=== PATIENT | male | born 1995 | race Caucasian/White ===

== ENCOUNTER 2021-05-01 17:34 | Emergency (ER) | payer OTHER, SELFPAY ==
--- NOTE | ~2021-05-01 | XR_ITS ---
EXAMINATION: XR WRIST, RIGHT CLINICAL INFORMATION: Injury. Deformity. COMPARISON: None TECHNIQUE: 4 views of the right wrist. FINDINGS: Abnormal study showing evidence of comminuted distal right radial fracture with foreshortening of the radius and dorsal angulation of the distal fracture fragments. The fracture line appears to be extending to the articular surface. The distal radioulnar joint appears to be intact. The carpal bones appear intact however, incidental note is made of sub-5 mm radiolucency within the scaphoid, likely represent degenerative cyst, base seen on the lateral projection. The ulnar styloid process appears to be fractured as well. XR/XR wrist RT min 3V IMPRESSION: Abnormal radiographs of the right wrist showing evidence of distal comminuted right radial metaphyseal fracture with dorsal angulation of the distal fracture fragments. In specific note is made of fracture line extension to the articular surface and nonspecific sub-5 mm cyst involving the distal part of the scaphoid, and presence of ulnar styloid process fracture.
--- NOTE | ~2021-05-01 | XR_ITS ---
EXAMINATION: XR WRIST, RIGHT CLINICAL INFORMATION: Status post closed reduction and casting COMPARISON: Wrist radiographs earlier today at 6:03 PM TECHNIQUE: PA and lateral views of the right wrist. FINDINGS: Again seen is the distal radial metaphyseal fracture with associated ulnar styloid fracture. Still is some minimal impaction of the radial fracture but no significant angulation is present in appearances are significantly improved. Scaphoid cyst is again seen. XR/XR wrist RT min 3V IMPRESSION: Good appearance is status post reduction distal radial and ulnar fractures.
[2021-05-01 18:07] VITALS: BP 136/87; PULSE 74; RESP 16; TEMP 36.6; O2SAT 100; BMI 17.2
--- NOTE | 2021-05-01 18:36 | ED.EXTPRO ---
HPI - Extremity Problem General Chief complaint: Extremity Injury, Upper Stated complaint: wrist inj (work rel) Time Seen by Provider: 05/01/21 18:08 Source: patient Mode of arrival: ambulatory Limitations: no limitations History of Present Illness HPI Narrative: 25-year-old male previously healthy here with complaint of right wrist pain and deformity after a fall on outstretched hand which occurred today at work just prior to arrival. Denies paresthesias. No other complaints. No head injury or loss of consciousness. Related Data Previous Rx's Medication Instructions Recorded ibuprofen 600 mg tablet 600 mg PO TID PRN #20 tab 05/01/21 oxycodone 5 mg tablet 5 mg PO Q6H PRN #8 tab 05/01/21 Allergies Allergy/AdvReac Type Severity Reaction Status Date / Time No Known Allergies Allergy Verified 05/01/21 18:11 Review of Systems Review of Systems: Yes all other systems are reviewed and are negative Constitutional: Constitutional: Reports no additional constitutional complaints, Denies body ache(s), Denies chills, Denies fever(s), Denies headache(s) and Denies weakness Eyes: Eyes: Reports no additional eye complaints and Denies change in vision ENT: Reports system reviewed and no additional complaints, except as documented, Denies dizziness, Denies headache(s), Denies nasal congestion, Denies nasal discharge and Denies neck pain Cardiovascular: Cardiovascular: Reports no additional cardiovascular complaints, Denies chest pain, Denies leg edema and Denies dyspnea Respiratory: Respiratory: Reports no additional respiratory complaints, Denies cough and Denies dyspnea Gastrointestinal: Gastrointestinal: Reports no additional gastrointestinal complaints, Denies abdominal pain, Denies diarrhea, Denies nausea and Denies vomiting Genitourinary: Genitourinary: Denies urinary incontinence Musculoskeletal: Musculoskeletal: Reports no additional musculoskeletal complaints, Denies back pain, Reports arthralgias, Reports joint swelling, Reports limited range of motion, Denies neck pain, Denies numbness and Denies tingling Integumentary/Breasts: Skin/Breast: Reports system reviewed and no additional complaints, except as docu and Denies rash Neurologic: Reports system reviewed and no additional complaints, except as documented, Denies Abnormal speech present, Denies dizziness, Denies headache(s), Denies numbness, Denies tingling and Denies weakness [facility] Past Medical History Attestation statement: The following information was validated with the patient. Source: old records reviewed and nursing notes reviewed Social History Social History Advance Directives: No Advance Directives Information Provided: Yes Physical Exam Vital Signs: Vital Signs: Last Vital Signs Temp 97.9 F 05/01/21 18:07 Pulse 74 05/01/21 18:07 Resp 16 05/01/21 18:07 BP 136/87 05/01/21 18:07 Pulse Ox 100 05/01/21 18:07 Body Mass Index 17.2 Const: General: cooperative, healthy appearing, comfortable and no acute distress Orientation/consciousness: patient oriented x3 Limitations: no limitations HENMT: Head: Yes normal to inspection Ears: hearing grossly normal bilaterally General nose exam: Normal external nose present Face and sinus: Yes normal facial exam Mouth: Normal oral and palatal mucosa present Throat: Yes posterior oropharynx normal Eyes: General: appearance normal, both eyes and all related structures Pupils: Equal, round and reactive pupils present Neck: Neck: Yes normal visual inspection Chest: Chest palpation & inspection: normal inspection of the chest Resp: Effort & Inspection: normal respiratory effort Auscultation: clear to auscultation bilaterally Cardio: Rate: regular rate Rhythm: regular rhythm Peripheral pulses: Peripheral pulses 2+ throughout GI: Inspection: Yes normal to inspection Palpation (GI): Soft to palpation and nontender Auscultation: normal bowel sounds Back/Spine/Pelvis: Thoracic/Lumbar Spine: thoracic and lumbar spine normal to inspection Skin: General skin exam: no rashes or lesions noted Neuro: General: patient oriented x3, no focal motor deficits and normal sensation to monofilament Cranial nerves: Yes Equal, round and reactive pupils present Cognition (Neuro): normal cognition Speech: No Abnormal speech present Gait exam (Neuro): Normal gait present Motor exam (neuro): 5/5 motor strength present throughout Extrem: Other: Obvious deformity to the right wrist. Patient is able to move the hand. No paresthesias. Sensation is intact. Normal cap refill. Palpable radial and ulna pulses General: Yes normal to inspection Course Course Course Narrative: 25-year-old male left-hand dominant here with complaints of right wrist pain and deformity after a injury at work. Reviewed x-rays. XR/XR wrist RT min 3V IMPRESSION: Abnormal radiographs of the right wrist showing evidence of distal comminuted right radial metaphyseal fracture with dorsal angulation of the distal fracture fragments. In specific note is made of fracture line extension to the articular surface and nonspecific sub-5 mm cyst involving the distal part of the scaphoid, and presence of ulnar styloid process fracture. -discussed with orthopedics. Recommend reduction with splint placement and follow-up in the office on Monday. Discussed with attending Dr Maynard. Hematoma block done at the bedside. Patient placed in traction for 15 minutes. 2000-reduction done at the bedside. Patient placed in a splint. Postreduction films show proper alignment.. Spoke with Orthopedics and they will follow-up with the patient on Monday. Reviewed worrisome signs and symptoms when to return to the emergency department. Comfortable discharge home. MDM - Extremity (Nontraumatic) Medical Records Attestation: I reviewed the patient's medical records. Lab Data Attestation: I reviewed the patient's lab results. Imaging Data hand xray right: Attestation: I personally reviewed and interpreted this imaging study as follows: Radiologist's impression: [address] [address] XRay Report Signed Patient: Ildefonso Samuel MR#: [id number] : 1995 Acct:[id number] Age/Sex: 25 / M ADM Date: 05/01/21 Loc: .ED Attending Dr: Ordering Physician: Victor Manuel Maynard MD Date of Service: 05/01/21 Procedure(s): XR wrist RT min 3V Accession Number(s): [id number] cc: Victor Manuel Maynard MD~ EXAMINATION: XR WRIST, RIGHT CLINICAL INFORMATION: Injury. Deformity.? COMPARISON: None? TECHNIQUE: 4 views of the right wrist. FINDINGS: Abnormal study showing evidence of comminuted distal right radial fracture with foreshortening of the radius and dorsal angulation of the distal fracture fragments. The fracture line appears to be extending to the articular surface. The distal radioulnar joint appears to be intact. The carpal bones appear intact however, incidental note is made of sub-5 mm radiolucency within the scaphoid, likely represent degenerative cyst, base seen on the lateral projection. The ulnar styloid process appears to be fractured as well.? XR/XR wrist RT min 3V IMPRESSION: Abnormal radiographs of the right wrist showing evidence of distal comminuted right radial metaphyseal fracture with dorsal angulation of the distal fracture fragments. In specific note is made of fracture line extension to the articular surface and nonspecific sub-5 mm cyst involving the distal part of the scaphoid, and presence of ulnar styloid process fracture. Procedures Orthopedic Fracture Reduction Fracture #1: Time Out Performed: No Side: right Fracture Reduction Location: radius Analgesia: hematoma block Technique: direct manipulation, traction/counter-traction, traction splint and finger traps Post Reduction X-rays Demonstrate: anatomical reduction Post-reduction neuro exam: intact Post-reduction vascular exam: intact Splint Applied: Yes Patient Tolerated Procedure: well Orthopedic Splinting/Casting Injury #1: Side: right Upper Extremity Injury Location: forearm Upper Extremity Immobilizer: sugar tong splint Critical Care Time Critical Care Time Critical Care Time: Yes Total Critical Care Time: 60 Attestation: Hematoma block Placed in traction Reduction of the bedside Discussion with Orthopedic Post reduction films with re-evaluations for CMS Splinting Discharge Plan Discharge Clinical Impression: Distal radial fracture, Fracture of right ulnar styloid Patient Disposition: Home, Self-Care Instructions: Wrist Fracture in Adults (ED), Closed Reduction (ED) Additional Instructions: The splint was stay on all times Do not get it wet Orthopedics will call you Monday for an appointment Sling for comfort Ice 20 minutes on 20 minutes off Elevation Work connection-call Monday [phone] for occupational follow-up Prescriptions: New ibuprofen 600 mg tablet 600 mg PO TID PRN (Reason: pain) Qty: 20 RF: 0 oxycodone 5 mg tablet 5 mg PO Q6H PRN (Reason: pain) Qty: 8 RF: 0 Referrals: Hayder Castillo MD [Physician] - 2 days Stand Alone Forms: Work/School Release Interventions: ED Discharge Assessment Last Done: 05/01/21 20:16 Discharge Date/Time: 05/01/21 20:21
--- NOTE | 2021-05-01 19:26 | PC.NURSE ---
PT RIGHT WRIST NUMBED BY CHICO BUTLER AND PT PLACED IN FINGER TRACTION FOR 15 MINS. AFTER [address] BALDWIN AND JUAN TONG PLACED +CMS TO FINGER IMMOBILIZER GIVEN.
[2021-05-01] MEDS: Lidocaine HCl 1 % MPF 5 ML VIAL 10 ML SUBCUT (19:30)
[2021-05-01] MEDS: Ibuprofen 800 MG TABLET PO (20:10)
[2021-05-01] MEDS: oxyCODONE HCl Immed Release 5 MG TABLET PO (20:10)
== END 2021-05-01 20:21 | disposition home or self-care (01) ==
PROVIDERS: Emergency Provider Emergency Medicine Emergency Medical Services
DX: S52.351A Displaced comminuted fracture of shaft of radius, right arm, initial encounter for closed fracture (principal); S52.611A Displaced fracture of right ulna styloid process, initial encounter for closed fracture; W01.0XXA Fall on same level from slipping, tripping and stumbling without subsequent striking against object, initial encounter; Y93.89 Activity, other specified; Y92.512 Supermarket, store or market as the place of occurrence of the external cause; Y99.0 Civilian activity done for income or pay
CPT/HCPCS: 25675; 73110; 99284; 99291

== ENCOUNTER → 2021-05-03 14:26 | Outpatient (BNVA) | payer OTHER, SELFPAY | PROVIDERS: Visit Provider Physician Assistant | DX: S52.501A Unspecified fracture of the lower end of right radius, initial encounter for closed fracture (principal); S52.611A Displaced fracture of right ulna styloid process, initial encounter for closed fracture; W01.0XXA Fall on same level from slipping, tripping and stumbling without subsequent striking against object, initial encounter; Y93.01 Activity, walking, marching and hiking; Y92.9 Unspecified place or not applicable; Y99.8 Other external cause status | CPT/HCPCS: 99202 ==

== ENCOUNTER 2021-05-06 05:52 | Day surgery (SDC) | payer OTHER, SELFPAY ==
--- NOTE | 2021-05-05 10:25 | HO.ANESPROP2 ---
Documented by User: Anna Whitaker NP 05/05/21 10:26 HPI - Anesthesia Eval Consult details Narrative: 25yo M for Right Radius Distal Fracture ORIF [facility] Active Problems Active Problems: All Active Problems (Updated 05/03/21 @ 21:16 by Bret Arauz PA-C) Fracture of ulnar styloid (Acute) Distal radius fracture, right (Acute) Past Medical History Medical History No significant past medical history Social History Social History Patient Tobacco Use Status: Current everyday Tobacco user Tobacco use type: Cigarette Cigarettes Per Day: 10 Use of substances other than those prescribed or required for medical reasons: Yes Substance Use Frequency: Daily Are you DNR?: No Advance Directives: No Advance Directives Information Provided: Yes Current occupational status: employed Current occupation: [employer] Meds Allergies Allergy/AdvReac Type Severity Reaction Status Date / Time No Known Allergies Allergy Verified 05/01/21 18:11 Exam Exam Date and Time: May 05, 2021 1025 Assessment and Plan Assessment Anesthesia Assessment: Chart Reviewed Documented by User: Lisseth Zelaya MD 05/06/21 07:26 [facility] Past Medical History Medical History No significant past medical history Family History Family history of problems with anesthesia: No Surgical History History of Problems with Anesthesia: No Social History Social History Patient Tobacco Use Status: Current everyday Tobacco user Tobacco use type: Cigarette Cigarettes Per Day: 10 Use of substances other than those prescribed or required for medical reasons: Yes Substance Use Frequency: Daily Are you DNR?: No Advance Directives: No Advance Directives Information Provided: Yes Current occupational status: employed 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 Meds Allergies Allergy/AdvReac Type Severity Reaction Status Date / Time No Known Allergies Allergy Verified 05/01/21 18:11 Exam Airway Mallampati Class: I TM Dist: >3cm Neck ROM: Full Assessment and Plan Assessment Anesthesia Assessment: Anesthesia Plan Discussed Final Anesthetic Review Family History of Problems with Anesthesia: No History of Problems with Anesthesia: No NPO: Yes ASA Class: I Final Preanesthetic Review: No Changes in Pt Med Stat, Meds/Allgs Chart Reviewed, Consent Obtained/Reviewed and Anes Risks/Benef Reviewed Patient Risk: Low Procedure Risk: Low Assessment/Block/Sedation in SS: Assess/Block/Sedation-SS Anesthetic Plan Anesthetic Plan: GA and Regional Block
--- NOTE | ~2021-05-06 | FL_ITS ---
EXAMINATION: XR FLUOROSCOPY WITH IMAGES CLINICAL INFORMATION: ORIF right distal radius COMPARISON: Right wrist 05/01/2021 TECHNIQUE: Fluoroscopy performed by Dr. Cody. Fluoroscopy time: 73.2 seconds DAP: 295.69 mGycm2 Images: 5 FINDINGS: Several images of right distal radius were obtained and reveals status post ORIF with satisfactory alignment of distal radial fracture with dorsal plate and screws. FL/FL guidance in OR IMPRESSION: Status post ORIF with dorsal plate and screws. The distal radial fracture is stabilized in alignment.
[2021-05-06 06:32] VITALS: BP 136/67; PULSE 61; RESP 16; TEMP 36.6; O2SAT 100; BMI 16.5
[2021-05-06] MEDS: Lactated Ringers 1,000 ML 100 ML IVCONT (07:15)
--- NOTE | 2021-05-06 07:58 | P.OP_ITS ---
Operative Note Operative Note Date of Service: 05/06/21 Narrative: Operative Note Narrative: Preop diagnosis: 1. Right Distal radius fracture Postop diagnosis: Same Procedure: 1. Right Distal radius fracture open reduction internal fixation, extra-articular Surgeon: Marcia Cody MD Anesthesia: General plus a regional block Findings: Distal radius fracture Implants: A 3 hole Accu Med volar locking plate, with 5 times 2.3 mm locking pegs/screws, and 3 3.5 mm cortical screws Tourniquet time: 64 minutes EBL: 5.0 ml Specimen: None Drains: None Complications: None Disposition: Brought to the recovery room in stable condition Plan: Follow-up in 10-14 days for wound check, suture removal and postop radiographs The patient will be placed in either a short-arm cast or a volar wrist splint. Encouraged no lifting of anything heavier than a cell phone. Please encourage active and passive range of motion of the digits. Follow-up at 4-5 weeks postop for repeat radiographs. Indications: The patient is a 25 year old man with a right distal radius f racture . The risks and benefits of operative treatment, including but not limited to risk of damage to blood vessels, nerves, tendons, infection, recurrence, persistent pain or numbness, incomplete resolution of preoperative symptoms, or need for further surgery were discussed with the patient and they wished to proceed with surgery. Procedure: Once consent was obtained patient was brought back to the operating suite and placed in the operating table in a supine position. A regional block was performed by the anesthesia team. Perioperative antibiotics and anesthesia was administered by the anesthesia team. A tourniquet was applied to the proximal aspect of the right upper extremity and the limb was prepped and draped in a standard surgical fashion. The limb was elevated exsanguinated with Esmarch bandage and the tourniquet inflated to 250 mm of mercury for a total tourniquet time of 64 minutes. The FluoroScan was used throughout the case to assess our reduction, and facili graves implant placement. A gentle closed reduction was 1st performed on the patient's right distal radius fracture. Was assessed radiographically before proceeding with the reduction internal fixation. I then made an 8 cm longitudinal incision over the distal aspect of the flexor carpi radialis tendon. The incision was made through the skin to the subcutaneous tissue using a 15. Blade. Then carefully dissected down to flexor carpi radialis tendon she tenotomy scissors. The FCR tendon sheath was then incised longitudinally using tenotomy scissors under direct visualization. The FCR tendon was then retracted ulnarly. I then made a longitudinal incision in the volar forearm fascia through the floor of FCR tendon sheath using tenotomy scissors under direct visualization. I identified the interval between the radial artery and the flexor tendons. This interval was developed further with my index finger, releasing some of the muscular fibers of the flexor pollicis longus. A dull we cyander retractor was then placed. I then created an ulnarly based flap of the pronator quadratus by releasing the radial and distal edges using a 15. Blade. A Nina elevator was used to elevate the pronator quadratus from the volar surface of the distal radius. This then revealed to us our distal radius fracture. An open reduction was then performed on our distal radius fracture. I then placed a short narrow 3 hole Accu Med volar locking plate on the volar surface of the distal radius. I placed a single K-wire through the distal aspect of the plate and into the distal radius. This was assessed using fluoroscopic images. I was satisfied with the placement of our plate. I then placed 5 X 2.3 mm locking screws/pegs in the distal aspect of the plate and distal radius by 1st drilling bicortically with a 1.8 mm drill bit, measuring with a depth gauge, and placing the appropriate length locking screws/pegs. The placement of our plate and screws was then assessed again using fluoroscopic images. The once satisfied with the placement of the volar locking plate and screws on the distal aspect of the distal radius, the plate was then reduced to the shaft of the radius. I then placed 3 x 3.5 mm cortical screws to the proximal aspect of the plate and into the shaft of the radius. This was done by 1st drilling bicortically with a 2.8 mm drill bit, measuring with a depth gauge, and placing the appropriate length screw. Final radiographs were then obtained. The DRUJ was assessed and found to be stable on exam. I was satisfied with our reduction and placement of all implants. At this point the wound was irrigated with normal saline. The pronator quadratus was reduced back over the volar locking plate using some 3-0 Vicryl suture material. The tourniquet was then deflated and hemostasis was obtained with a brief period of local pressure and bipolar monopolar electrocautery. The subcutaneous layer was then reapproximated using some 4-0 Vicryl suture, and the skin edges were reapproximated using some 5 0 Prolene suture. The wound was then infiltrated with some 1% lidocaine with epinephrine postop pain control. A sterile dressing and a short dorsal splint allowing for active flexion and extension of the digits was applied. The patient appears to have tolerated the procedure well and with no complications. All digits were well vascularized conclusion of the case.
--- NOTE | 2021-05-06 07:58 | MHC.SHP ---
Pre-Procedural Eval Section A Date of Service: 05/06/21 The patient is an INPATIENT: No Changes since office visit: No Cold of Flu in the past 2 weeks, No New Medical Problems, No Changes in Medication and No Patient answered all questions The History & Physical has been completed within 30 days and I have reviewed it.: Yes Section B Chief Complaint: fx lower end right radius Allergies: Allergies Allergy/AdvReac Type Severity Reaction Status Date / Time No Known Allergies Allergy Verified 05/01/21 18:11 Plan I have reviewed the history and physical and performed a pertinent physical examination on my patient. No changes have occurred unless specified.
[2021-05-06 09:58] VITALS: BP 124/81; PULSE 85; RESP 16; TEMP 36.2; O2SAT 96
[2021-05-06 10:03] VITALS: BP 118/76; PULSE 79; RESP 18; O2SAT 100
[2021-05-06 10:08] VITALS: BP 114/72; PULSE 68; RESP 16; O2SAT 100
[2021-05-06 10:13] VITALS: BP 116/75; PULSE 60; RESP 16; O2SAT 100
[2021-05-06 10:28] VITALS: BP 115/76; PULSE 62; RESP 16; TEMP 36.2; O2SAT 100
== END 2021-05-06 11:20 | disposition home or self-care (01) ==
PROVIDERS: Visit Provider Orthopaedic Surgery
PROC: (CPT 25607; principal; 2021-05-06 07:30)
DX: S52.551A Other extraarticular fracture of lower end of right radius, initial encounter for closed fracture (principal); W01.0XXA Fall on same level from slipping, tripping and stumbling without subsequent striking against object, initial encounter; Y93.89 Activity, other specified; Y92.481 Parking lot as the place of occurrence of the external cause; Y99.0 Civilian activity done for income or pay; F17.210 Nicotine dependence, cigarettes, uncomplicated
CPT/HCPCS: 25607; C1713; C1769; J0690; J1100; J2250; J2405; J3010

== ENCOUNTER 2021-05-17 15:51 | Outpatient (REF) | payer OTHER, SELFPAY ==
--- NOTE | ~2021-05-17 | XR_ITS ---
EXAMINATION: XR WRIST, RIGHT CLINICAL INFORMATION: Right wrist pain. COMPARISON: 05/01/2021 TECHNIQUE: PA, lateral, and oblique views of the right wrist. FINDINGS: Since the prior study patient has undergone open reduction internal fixation with a plate and screw device overlying the distal radial fracture. There is minimal 2 mm cortical offset on the radial aspect. An ulnar styloid fracture is again seen. The hardware appears intact. XR/XR wrist RT min 3V IMPRESSION: Status post open reduction internal fixation right radial fracture as described above.
== END 2021-05-17 15:52 | disposition home or self-care (01) ==
LOC: HO.HOSX 15:51
PROVIDERS: Visit Provider Orthopaedic Surgery
DX: S52.501D Unspecified fracture of the lower end of right radius, subsequent encounter for closed fracture with routine healing (principal); S52.613D Displaced fracture of unspecified ulna styloid process, subsequent encounter for closed fracture with routine healing
CPT/HCPCS: 73110; 99212

== ENCOUNTER 2021-06-01 09:06 | Outpatient (REF) | payer OTHER, SELFPAY ==
--- NOTE | ~2021-06-01 | XR_ITS ---
EXAMINATION: XR WRIST, RIGHT CLINICAL INFORMATION: Right wrist pain. COMPARISON: Most recent right wrist radiographs dated 05/17/2021. TECHNIQUE: PA, lateral, and oblique views of the right wrist. FINDINGS: Volar stabilization plate with fixation screws at the distal radius. No acute hardware fracture. No perihardware lucency to suggest loosening or infection. Distal radial fracture in unchanged anatomic alignment. Ulnar styloid fracture in unchanged anatomic alignment. XR/XR wrist RT min 3V IMPRESSION: Radial stabilization plate without evidence of hardware complication. Distal radial and ulnar styloid fractures in unchanged anatomic alignment.
== END 2021-06-01 09:07 | disposition home or self-care (01) ==
LOC: HO.HOSX 09:06
PROVIDERS: Visit Provider Orthopaedic Surgery
DX: S52.501D Unspecified fracture of the lower end of right radius, subsequent encounter for closed fracture with routine healing (principal)
CPT/HCPCS: 73110; 99212

== ENCOUNTER → 2021-06-22 08:54 | Outpatient (BNVA) | payer OTHER, SELFPAY | PROVIDERS: Visit Provider Orthopaedic Surgery | DX: S52.501D Unspecified fracture of the lower end of right radius, subsequent encounter for closed fracture with routine healing (principal) | CPT/HCPCS: 99212 ==

== ENCOUNTER 2021-07-13 13:00 | Outpatient (RCR) | payer OTHER, SELFPAY ==
--- NOTE | 2021-07-13 13:48 | MHC.OT.DC ---
[address] [phone] F: [phone] Occupational Therapy Discharge Note Provider: Dr Cody Diagnosis: Right DR graves s/p ORIF, ulnar styloid fx Date of Surgery: 05/06/21 Date of Evaluation: 06/09/21 Date of Discharge: 07/13/21 Treatments to Date: 6 Cancellations to Date: 0 No Shows to Date: 0 Discharge Status: Achieved Goals Improved Function Independent with HEP Discharge Summary: 10 weeks post-op and doing well, pain free at rest and very low pain with end range rotation and heavier lifting. Still avoiding aggravating activities and continues to be on light duty at work. ROM and strength within funcitonal limits, good understanding of HEP and will continue to progress gross grasp. Electronically Signed By: Sharee Saldivar OTR/Edward Reviewed/agree with student documentation: N/A Therapist: Please Sign and return to therapist, thank you for your referral.
== END 2021-07-13 13:56 | disposition home or self-care (01) ==
LOC: HO.OT 13:00
PROVIDERS: Visit Provider Orthopaedic Surgery
DX: S52.501D Unspecified fracture of the lower end of right radius, subsequent encounter for closed fracture with routine healing (principal)
CPT/HCPCS: 97035; 97110; 97140; 97165

== ENCOUNTER → 2021-07-21 10:33 | Outpatient (BNVA) | payer OTHER, SELFPAY | PROVIDERS: Visit Provider Orthopaedic Surgery | DX: S52.501D Unspecified fracture of the lower end of right radius, subsequent encounter for closed fracture with routine healing (principal); S52.611D Displaced fracture of right ulna styloid process, subsequent encounter for closed fracture with routine healing | CPT/HCPCS: 99212 ==